=== PATIENT | male | born 1995 | race Hispanic/Latino ===

== ENCOUNTER 2024-12-06 09:56 | Emergency (ER) | payer OTHER ==
[~2024-12-06] VITALS: Ht 175.3 cm; Wt 111.4 kg
[2024-12-06] MEDS ORDERED: CYCLOBENZAPRINE5 MG PO (11:01)
[2024-12-06] MEDS: KETOROLAC TROMETHAMINE 60 MG/2 ML VIAL IM ONE (11:09)
[2024-12-06 11:14] VITALS: PULSE 66; RESP 16; TEMP 98.4; O2SAT 98
== END 2024-12-06 11:18 | disposition home or self-care (01) ==
LOC: FSED 10:13
DX: M54.6 Pain in thoracic spine (principal); G89.29 Other chronic pain; Z86.11 Personal history of tuberculosis; F17.210 Nicotine dependence, cigarettes, uncomplicated
CPT/HCPCS: 96372; 99283; J1885